=== PATIENT | female | born 1955 | race Caucasian/White ===

== ENCOUNTER → 2016-12-07 | Outpatient (CLI) | payer OTHER ==
--- NOTE | 2016-12-08 13:42 | MM ---
Reason for exam: screening (asymptomatic). Last mammogram was performed 1 year and 7 months ago. History: Patient is postmenopausal. Family history of breast cancer in aunt at age 70. Physical Findings: A clinical breast exam by your physician is recommended on an annual basis and results should be correlated with mammographic findings. MG Screening Mammo w CAD Bilateral CC and MLO view(s) were taken. Prior study comparison: April 30, 2015, bilateral MG screening mammo w CAD. January 26, 2014, bilateral MG screening mammo w CAD. There are scattered fibroglandular densities. There is chronic nodularity in the left breast. No significant changes when compared with prior studies. ASSESSMENT: Negative, BI-RAD 1 RECOMMENDATION: Routine screening mammogram of both breasts in 1 year.
== END | disposition home or self-care (01) ==
LOC: RADMAMWWP 10:36
PROVIDERS: ATTEND Internal Medicine
DX: Z12.31 Encounter for screening mammogram for malignant neoplasm of breast (principal)

== ENCOUNTER 2017-12-14 10:32 | Emergency (ER) | payer OTHER ==
[2017-12-14] MEDS ORDERED: LORazepam 2 MG/ML INJ IV STA (10:50)
[2017-12-14] MEDS ORDERED: ONDANSETRON 4 MG/2 ML VIAL IVP STA (10:50)
[2017-12-14] MEDS ORDERED: MECLIZINE 12.5 MG TAB PO STA (10:50)
--- NOTE | 2017-12-14 10:58 | ED ---
Dizziness HPI - General Chief Complaint: Dizziness Stated Complaint: Vertigo Time Seen by Provider: 12/14/17 10:44 Source: patient Mode of arrival: wheelchair Limitations: no limitations - History of Present Illness Initial Comments: This 62-year-old white female presents with a complaint of some dizziness. She states that when she woke up this morning she rolled over and developed a significant spinning type sensation. It is worse when she moves her head or looks up to the right side while moving head. She describes it as a significant spinning or whirling sensation. She denies any tinnitus, hearing loss, ear pain, or ear fullness. She denies any previous episodes of vertigo. She denies any fevers or chills or recent upper respiratory type infections. She denies any problems with sensation, coordination, vision, speech or other neurologic problems. No other complaints or modifying factors. - Related Data Home Medications Medication Instructions Recorded Confirmed Atorvastatin Calcium [Lipitor] 40 mg PO HS 04/17/14 12/14/17 Cetirizine HCl [Zyrtec] 10 mg PO DAILY 04/17/14 12/14/17 Lisinopril-Hctz 10-12.5 mg 1 tab PO QAM 04/17/14 12/14/17 [Zestoretic 10-12.5] Meloxicam [Mobic] 7.5 mg PO BID 04/17/14 12/14/17 Montelukast [Singulair] 10 mg PO HS 04/17/14 12/14/17 traMADol HCl [Ultram] 50 mg PO BID 04/17/14 12/14/17 Albuterol Inhaler [Ventolin Hfa 1 - 2 puff INHALATION RT-Q6H PRN 06/21/17 Inhaler] Budesonide/Formoterol Fumarate 1 puff INHALATION RT-DAILY 06/21/17 12/14/17 [Symbicort 160-4.5 Mcg Inhaler] Aspirin EC [Ecotrin Low Dose] 81 mg PO BID 12/14/17 12/14/17 Leroy-3 Fatty Acids/Fish Oil [Fish 1 cap PO DAILY 12/14/17 12/14/17 Oil 1,000 mg Softgel] Previous Rx's Medication Instructions Recorded Meclizine [Antivert] 25 mg PO TID PRN #20 tab 12/14/17 Ondansetron [Zofran ODT] 8 mg PO Q8HR PRN #12 tab 12/14/17 Allergies Allergy/AdvReac Type Severity Reaction Status Date / Time egg Allergy Rash/Hives Verified 12/14/17 11:01 Review of Systems ROS Statement: Those systems with pertinent positive or pertinent negative responses have been documented in the HPI. ROS Other: All systems not noted in ROS Statement are negative. 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 Past Anesthesia/Blood Transfusion Reactions: Motion Sickness, Postoperative Nausea & Vomiting (PONV) Additional Past Anesthesia/Blood Transfusion Reaction / Comment(s): pt. has never had general anes or blood transfusion Past Psychological History: No Psychological Hx Reported Smoking Status: Never smoker Past Alcohol Use History: None Reported Past Drug Use History: None Reported - Past Family History Mother Family Medical History: Cancer Father Additional Family Medical History / Comment(s): industrial hepatitis General Exam - General Exam Comments Initial Comments: GENERAL: The patient is well nourished and well hydrated. VITAL SIGNS: Heart rate, blood pressure, respiratory rate reviewed as recorded in nurse's notes. EYES: Pupils are round and reactive. Extraocular movements are intact. No conjunctival / lid redness or swelling. ENT: No external evidence of injury, swelling, or ecchymosis. Airway is patent. Throat is clear. There is cerumen impaction in the right ear. The left ear is clear. NECK: Nontender. No swelling or evidence of injury. No subcutaneous emphysema. Trachea is midline. No thyroid mass. HEART: Regular rate and rhythm. Good peripheral pulses. LUNGS/CHEST: Breath sounds clear and equal bilaterally. No rales, rhonchi, or wheezes. No ecchymosis, subcutaneous emphysema, or tenderness. ABDOMEN: Abdomen soft without tenderness. No palpable masses or organomegaly. No peritoneal signs. No abdominal wall swelling or ecchymosis. EXTREMITIES: No extremity tenderness. Normal muscle tone and function. No thoracolumbar tenderness. NEUROLOGIC: Sensation is grossly intact. Cranial nerve exam reveals face is symmetrical, tongue is midline, speech is clear. SKIN: No abrasions or ecchymosis is noted. No induration or masses noted. PSYCHIATRIC: Alert and oriented. Appropriate behavior and judgment. Limitations: no limitations Course Vital Signs 12/14/17 12/14/17 12/14/17 10:38 11:18 12:31 Temperature 98.0 F Pulse Rate 87 81 88 Respiratory 18 16 16 Rate Blood Pressure 142/75 138/67 142/73 O2 Sat by Pulse 98 99 97 Oximetry Medical Decision Making - Medical Decision Making The patient was seen and examined. All diagnostics were reviewed. She does receive some Antivert orally, Ativan intravenously, and Zofran intravenously for her vertigo. She is feeling much improved after receiving the medications. Her right ear was flushed and some cerumen is removed. Additional cerumen is removed with a small ear curette. They're still does remain a fair amount of cerumen and she will use her earwax softening drops at home. The computed tomography scan was negative of the brain. The laboratory is all essentially within normal limits. The EKG shows a normal sinus rhythm at a rate of 81. There is no acute ST-T wave changes identified. The ME intervals 160, QRS duration is 92, and the QTc interval is 446. This felt that she likely does have a benign positional vertigo and that she is stable for discharge home. She is counseled regarding this in detail. She will attempt the canalith repositioning maneuver at home. ENT referral information given in case her symptoms do persist. - Lab Data Result diagrams: 12/14/17 11:13 12/14/17 11:13 Lab Results 12/14/17 12/14/17 Range/Units 11:13 11:13 WBC 8.0 (3.8-10.6) k/uL RBC 4.79 (3.80-5.40) m/uL Hgb 13.7 (11.4-16.0) gm/dL Hct 41.8 (34.0-46.0) % MCV 87.2 (80.0-100.0) fL MCH 28.7 (25.0-35.0) pg MCHC 32.9 (31.0-37.0) g/dL RDW 12.4 (11.5-15.5) % Plt Count 271 (150-450) k/uL Neutrophils % 80 % Lymphocytes % 12 % Monocytes % 4 % Eosinophils % 3 % Basophils % 0 % Neutrophils # 6.4 (1.3-7.7) k/uL Lymphocytes # 1.0 (1.0-4.8) k/uL Monocytes # 0.3 (0-1.0) k/uL Eosinophils # 0.2 (0-0.7) k/uL Basophils # 0.0 (0-0.2) k/uL Sodium 143 (137-145) mmol/L Potassium 4.6 (3.5-5.1) mmol/L Chloride 103 (98-107) mmol/L Carbon Dioxide 27 (22-30) mmol/L Anion Gap 13 mmol/L BUN 27 H (7-17) mg/dL Creatinine 0.60 (0.52-1.04) mg/dL Est GFR (CKD-EPI)AfAm >90 (>60 ml/min/1.73 sqM) Est GFR (CKD-EPI)NonAf >90 (>60 ml/min/1.73 sqM) Glucose 109 H (74-99) mg/dL Calcium 9.5 (8.4-10.2) mg/dL Disposition Clinical Impression: Vertigo, Right ear impacted cerumen, Hypertension Disposition: HOME SELF-CARE Condition: Good Instructions: Benign Paroxysmal Positional Vertigo (ED) Additional Instructions: Please attempt the canalith repositioning maneuver or Matthieu's maneuver at home as discussed. Prescriptions: Meclizine [Antivert] 25 mg PO TID PRN #20 tab PRN Reason: Vertigo Ondansetron [Zofran ODT] 8 mg PO Q8HR PRN #12 tab PRN Reason: Nausea Referrals: Mariaa Gonzalez MD [Primary Care Provider] - 1-2 days Bin Davies DO [Doctor of Osteopathic Medicine] - 12/17/17 Time of Disposition: 12:54
[2017-12-14 11:19] VITALS: RESP 16
[2017-12-14 11:36] LABS: Basophils % (A) 0 %; Eosinophils # (A) 0.2 k/uL (0-0.7); Eosinophils % (A) 3 %; HCT 41.8 % (34.0-46.0); HGB 13.7 gm/dL (11.4-16.0); Lymphocytes % (A) 12 %; MCH 28.7 pg (25.0-35.0); MCHC 32.9 g/dL (31.0-37.0); MCV 87.2 fL (80.0-100.0); Mean Platelet Volume 8.2; Monocytes # (A) 0.3 k/uL (0-1.0); Monocytes % (A) 4 %; Neutrophils # (A) 6.4 k/uL (1.3-7.7); Neutrophils % (A) 80 %; Platelet Count 271 k/uL (150-450); RBC 4.79 m/uL (3.80-5.40); RDW 12.4 % (11.5-15.5)
[2017-12-14 11:45] LABS: Anion Gap 13 mmol/L; Blood Urea Nitrogen 27 mg/dL (7-17); Calcium 9.5 mg/dL (8.4-10.2); Carbon Dioxide 27 mmol/L (22-30); Chloride 103 mmol/L (98-107); Glucose 109 mg/dL (74-99); Potassium 4.6 mmol/L (3.5-5.1); Sodium 143 mmol/L (137-145)
--- NOTE | 2017-12-14 11:55 | CT ---
EXAMINATION TYPE: CT brain wo con DATE OF EXAM: 12/14/2017 COMPARISON: NONE HISTORY: Patient complains of vertigo. CT DLP: [address] of the brain was performed. The ventricles, basal cisterns and sulci overlying the cerebral convexities demonstrate mild enlargem ent. There is no evidence for intracranial hemorrhage or sulcal effacement. There is decreased attenuation about the periventricular white matter and deep white matter of both c erebral hemispheres, compatible with chronic small vessel ischemia. Differential diagnosis does inclu de demyelination. No mass effects are seen.No midline shift. Osseous calvarium is intact. If symptoms persist consider MRI. IMPRESSION: 1. Age related atrophic and chronic small vessel ischemic change without acute intracranial process s een at this time.
[2017-12-14 13:04] VITALS: BP 136/56; PULSE 75; TEMP 97.2
== END 2017-12-14 13:03 | disposition home or self-care (01) ==
LOC: EC 10:32
DX: I10 Essential (primary) hypertension (principal); R42 Dizziness and giddiness; H61.21 Impacted cerumen, right ear; J45.909 Unspecified asthma, uncomplicated; K21.9 Gastro-esophageal reflux disease without esophagitis; E78.5 Hyperlipidemia, unspecified; Z79.1 Long term (current) use of non-steroidal anti-inflammatories (NSAID); Z79.82 Long term (current) use of aspirin; Z79.51 Long term (current) use of inhaled steroids; Z79.899 Other long term (current) drug therapy; Z91.012 Allergy to eggs
CPT/HCPCS: 99284; 69210; 96374; 96375; 36415; 93005; 80048; 85025; 70450; J2060; J2405